=== PATIENT | male | born 2000 | race Caucasian/White ===

== ENCOUNTER 2022-03-13 21:06 | Emergency (ER) | payer OTHER ==
[~2022-03-13] VITALS: Ht 185.4 cm; Wt 108.9 kg
[2022-03-13 21:32] VITALS: BP_SYST 169
--- NOTE | 2022-03-13 21:38 | NUR ---
Patient triaged and placed in waiting room. VS checked and patient appears in no acute distress at this time. Accompanied by self, awaiting available bed, and MD notified of need for MSE.
[2022-03-14] MEDS ORDERED: OXYCODONE/ACETAMINOPHEN *10*mg/325 mg TABLET PO ONE (02:00)
[2022-03-14] MEDS ORDERED: IBUPROFEN 600 MG TABLET PO ONE (02:00)
[2022-03-14] MEDS ORDERED: HYDR-3921 PO (02:09)
[2022-03-14] MEDS ORDERED: IBUP-1969 PO (02:09)
--- NOTE | 2022-03-14 03:05 | NUR ---
MEDICATED ORDERED FOR PAIN, WILL CONTINUE TO MONITOR
--- NOTE | 2022-03-14 03:15 | NUR ---
Patient given written and verbal discharge instructions and verbalizes understanding. ER MD DR DAWSON discussed with patient the results and treatment provided. Patient in stable condition. ID arm band removed. IV catheter removed intact and dressing applied, no active bleeding. Rx of given. Patient educated on pain management and to follow up with PMD. Pain Scale . Opportunity for questions provided and answered. Medication side effect fact sheet provided.
[2022-03-14 04:26] VITALS: BP_SYST 137
--- NOTE | 2022-03-14 04:30 | NUR ---
PATIENT WAS D/C HOME AT 0315AM. Patient given written and verbal discharge instructions and verbalizes understanding. ER MD DWASON discussed with patient the results and treatment provided. Patient in stable condition. ID arm band removed. IV catheter removed intact and dressing applied, no active bleeding. Rx of given. Patient educated on pain management and to follow up with PMD. Pain Scale O. Opportunity for questions provided and answered. Medication side effect fact sheet provided.
== END 2022-03-14 03:15 | disposition home or self-care (01) ==
LOC: SED 21:06 → EDBD 21:06 → SED 03-14 03:15
DX: S46.092A Other injury of muscle(s) and tendon(s) of the rotator cuff of left shoulder, initial encounter (principal); Z79.899 Other long term (current) drug therapy; W21.02XA Struck by soccer ball, initial encounter; Y93.66 Activity, soccer; Y92.89 Other specified places as the place of occurrence of the external cause; Y99.8 Other external cause status
CPT/HCPCS: 73030; 99283